=== PATIENT | female | born 1945 | race Caucasian/White ===

== ENCOUNTER 2023-06-10 09:01 | Outpatient (CLI) | payer MEDICARE, OTHER ==
[2023-06-10 14:20] LABS: HCT - HEMATOCRIT 44.9 % (37.0-47.0); HGB - HEMOGLOBIN 13.7 g/dL (12.0-16.0); MEAN CORPUSCULAR HGB CONC 30.5 g/dL (32.0-36.0); MEAN CORPUSCULAR VOLUME 98.5 fL (81.0-99.0); MEAN PLATELET VOLUME 11.4 fL (7.9-10.8); RED BLOOD COUNT 4.56 10^6/uL (4.20-5.40); RED CELL DISTRIBUTION WIDTH 14.1 % (12.0-15.0); WHITE BLOOD COUNT 7.9 x10^3/uL (4.8-10.8)
[2023-06-10 14:41] LABS: ALBUMIN 4.3 g/dL (3.2-5.5); ALBUMIN/GLOBULIN RATIO 1.7 (1.0-2.2); ALKALINE PHOSPHATASE 90 IU/L (42-121); ALT ALANINE AMINOTRANSFERASE 35 IU/L (10-60); AST ASPARTATE AMINOTRANSFERASE 30 IU/L (10-42); BILIRUBIN,TOTAL 0.7 mg/dL (0.2-1.0); BUN - BLOOD UREA NITROGEN 13 mg/dL (6-20); CALCIUM 9.8 mg/dL (8.5-10.3); CARBON DIOXIDE - CO2 27 mmol/L (21-32); CHLORIDE 103 mmol/L (101-111); CHOL/HDL RATIO 2.4 (<4.4); CHOLESTEROL 147 mg/dL; CREATININE 0.7 mg/dL (0.6-1.3); GFR - MDRD 81 (>89); GLUCOSE 209 mg/dL (74-104); HDL CHOLESTEROL 62 mg/dL; LDL CHOLESTEROL,CALCULATED 44 mg/dL; LDL/HDL RATIO 0.7 (<4.4); POTASSIUM 4.3 mmol/L (3.5-4.5); SODIUM 137 mmol/L (135-145); TOTAL PROTEIN 6.9 g/dL (6.4-8.9); TRIGLYCERIDES 204 mg/dL (48-352); VLDL CHOLESTEROL 41 mg/dL
[2023-06-10 14:56] LABS: THYROID STIMULATING HORMONE 2.94 uIU/mL (0.34-5.60)
[2023-06-10 20:21] LABS: ESTIMATED AVERAGE GLUCOSE 163 mg/dL (70-100); HEMOGLOBIN A1c% 7.3 % (4.27-6.07)
== END 2023-06-10 09:02 | disposition home or self-care (01) ==
LOC: LAB.S 09:01
PROVIDERS: ATTEND Family Medicine
DX: E11.9 Type 2 diabetes mellitus without complications (principal); E78.2 Mixed hyperlipidemia; I10 Essential (primary) hypertension; E66.01 Morbid (severe) obesity due to excess calories
CPT/HCPCS: 36415; 80053; 80061; 83036; 83721; 84443; 85025; 85027